=== PATIENT | female | born 1945 | race Caucasian/White ===

== ENCOUNTER → 2017-02-10 | Outpatient (CLI) | payer MEDICARE ==
[~2017-02-10] MED LIST: ACTONEL 5MG TABL5 MG PO; B-12 500 MCG; CITRACAL PLUS1 TAB PO; FERROUS SULFATE65 MG PO; FLAXSEED OIL1000 MG PO; FLOVENT DI50 MCG/Act IH; GINKGO3; IMITREX50 MG PO; LIPOIC ACID PO; LUTEIN20 M1 PO; MAG-OX 400400 MG/TAB PO; OMEGA 31000 MG; STRESS FORMULA1 T16 PO; SYNTHROID0.1 MG/TAB PO; ZANTAC 150150 MG; [UNRECOGNIZED DRUG - OTHER] PO
== END ==
LOC: MC.RAD 13:23
DX: Z12.31 Encounter for screening mammogram for malignant neoplasm of breast (principal)

== ENCOUNTER 2022-05-24 07:04 | Day surgery (SDC) | payer MEDICARE ==
[~2022-05-24] VITALS: Ht 162.6 cm; Wt 59.6 kg
[2022-05-24] VITALS (12 sets, daily range): BP systolic 92–122; BP diastolic 53–80; PULSE 52–73; TEMP 98.4
[2022-05-24 08:13] LABS: HEMATOCRIT 39.8 % (37.0-47.0); HEMOGLOBIN 13.4 g/dl (12.5-16.0); MEAN CELL VOLUME 98 fl (80.0-100.0); MEAN CORPUSCULAR HEMOGLOBIN 33 pg (27-31); MEAN CORPUSCULAR HGB CONC 34 g/dl (33.0-37.0); MEAN PLATELET VOLUME 9.4 fl (7.4-10.4); PLATELET COUNT 190 K/mm3 (130-400); RED BLOOD COUNT 4.07 M/mm3 (4.10-5.30); REDCELL DISTRIBUTION WIDTH-CV 12.6 % (11.5-14.5)
[2022-05-24 08:19] LABS: INR 1.1 (0.8-3.0); PROTHROMBIN TIME 12.3 SECONDS (9.7-12.8)
[2022-05-24 08:22] LABS: PARTIAL THROMBOPLASTIN TIME 33.7 SECONDS (26.0-37.0)
[2022-05-24 08:28] LABS: CALCIUM 8.9 mg/dL (8.4-10.2); CREATININE, serum 0.67 mg/dL (0.57-1.11)
[2022-05-24] MEDS ORDERED: CALCIUM 600 MG1 EAC2 PO (08:57)
[2022-05-24] MEDS ORDERED: FOSAMAX 70MG TA70 MG PO (08:57)
[2022-05-24] MEDS ORDERED: FERROUS SU325 MG/TAB PO (08:58)
[2022-05-24] MEDS ORDERED: EPA FISH OIL1 SGL PO (08:58)
[2022-05-24] MEDS ORDERED: FLAXSEED OIL1000 MG PO (08:58)
[2022-05-24] MEDS ORDERED: IMITREX50 MG PO (08:59)
[2022-05-24] MEDS ORDERED: NATURAL MAGNES200 MG PO (08:59)
[2022-05-24] MEDS ORDERED: SYNTHROID0.125 MG/T PO (08:59)
[2022-05-24] MEDS ORDERED: LUTEIN20 M1 PO (09:00)
[2022-05-24] MEDS ORDERED: STRESS FORMULA1 T16 PO (09:01)
--- NOTE | 2022-05-24 11:11 | NUR ---
See merge for all medication, assessment,intervention, and vital sign times.
--- NOTE | 2022-05-24 13:00 | NUR ---
Pt c/o increase in nausea. She states she would take medication at this time. JOLENE Parson with cardiology contacted for order.
--- NOTE | 2022-05-24 16:20 | NUR ---
DC instructions reviewed with pt and , both express understanding. Air was removed slowly from TR band per instruction of Dr Manzano. Air removed in 2 ml increments, with no bleeding or complication. 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 Rt radial puncture site dressed with foled 2x2 and bandaid. Pt has been steady on feet to restroom. Nausea quickly improved following IV zofran administration, and she has tolerated PO without issue. IV DC'd with catheter intact, site wrapped with coban. Pt is assisted out to 's car by wheelchair with belongings.
== END 2022-05-24 16:20 | disposition home or self-care (01) ==
LOC: COL.CAR 07:04
PROVIDERS: Internal Medicine Cardiovascular Disease
DX: I20.0 Unstable angina (principal); I71.2 Thoracic aortic aneurysm, without rupture
CPT/HCPCS: C1769; C1887; J1644; J2250; J2405; J3010